=== PATIENT | female | born 1950 | race Caucasian/White ===

== ENCOUNTER 2019-05-30 11:58 | Inpatient (IN) | payer MEDICARE, OTHER ==
--- NOTE | 2019-05-24 16:09 | HPE ---
DATE OF ADMISSION: 05/30/2019 ATTENDING PHYSICIAN: Dr. Gary Courtney CHIEF COMPLAINT: Right knee pain and stiffness. HISTORY: The patient is a pleasant 69-year-old female with progressively worsening right knee pain and stiffness. She has failed to improve with conservative measures. She continues to have symptoms with weightbearing activities and activities of daily living. She has consented for an elective right total knee arthroplasty with Dr. Courtney for her continued symptoms. Medical optimization pending with Dr. Valadez. CURRENT MEDICATIONS: - aspirin 81 mg daily - Zoloft 50 mg daily - labetalol 100 mg two every morning and one every evening - Aricept 10 mg twice daily - gabapentin 300 mg twice daily - Janumet 500 mg twice daily - fish oil 100 mg daily CHRONIC MEDICAL CONDITIONS: 1. Dementia. 2. Diabetes. 3. Hypertension. 4. Depression. ALLERGIES: There are no known drug allergies. PAST SURGICAL HISTORY: Include: 1. Cholecystectomy. 2. Partial hysterectomy. 3. Liposuction. 4. Hip surgery status post fracture. 5. Bilateral cataract surgery. SOCIAL HISTORY: The patient does not use tobacco and rarely uses alcohol. REVIEW OF SYSTEMS: The patient denies fevers, chills, nausea, vomiting or diarrhea. She denies chest pain, shortness of breath, lightheadedness, dizziness or headaches. She denies any recent upper respiratory or urinary tract infection symptoms. She continues to have right knee pain with weightbearing activities and activities of daily living. PHYSICAL EXAMINATION: GENERAL: Well-nourished, well-developed female in no apparent distress. She is alert, oriented and cooperative. Mood and affect are appropriate. VITAL SIGNS: Height 5 feet, 10 inches, weight 116.4 pounds, temperature 97.7, blood pressure 121/80, heart rate 76, respirations 15. NECK: Supple without lymphadenopathy. HEART: Regular rate and rhythm. LUNGS: Clear to auscultation bilaterally. ABDOMEN: Soft, nontender to palpation. Bowel sounds are present. MUSCULOSKELETAL: The patient is walking with the assistance of a cane today. She is favoring the right lower extremity. Inspection of the knee does reveal some hypertrophic bone growth medially with some tenderness to palpation along the medial joint line. She can extend knee fully but can only flex to 90 degrees. There is a valgus deformity present. Strength of the right lower extremity is 5/5. No hip irritability was elicited with range of motion testing. Calf is soft, nontender to palpation with no palpable cords noted. She is neurovascularly intact distally. LABORATORY DATA: EKG: Normal sinus rhythm with low-voltage QRS. Chest x-ray: No acute disease. Right knee x-ray notable for a day at the degenerative valgus changes. Comprehensive metabolic panel: Sodium 145, potassium 4, chloride 104, carbon dioxide 29, glucose elevated at 131, BUN 15, creatinine 0.7, BUN/creatinine 21, total protein 6.7, albumin 4.1, globulin 2.6, albumin-globulin ratio 1.6, calcium 9.6, total bilirubin 0.3, alkaline phosphatase 82, AST 13, ALT decreased at 6, anion gap 12. Type and screen: A+ with a negative antibody screen. Complete blood count (CBC): WBC 6.8, RBCs 4.45, hemoglobin 13, hematocrit 40.1, platelets 240. Prothrombin time 13.3, INR 0.98, erythrocyte sedimentation rate 13. IMPRESSION: Right knee degenerative valgus arthritis with x-rays notable for end-stage degenerative changes. PLAN: The patient has consented for an elective right total knee arthroplasty with Dr. Courtney for her continued symptoms. Medical optimization pending with Dr. Courtney. GUSTAVO
[2019-05-30] VITALS (7 sets, daily range): BP systolic 151–166; BP diastolic 61–70
[~2019-05-30] VITALS: Ht 147.3 cm; Wt 51.8 kg
[~2019-05-30 11:58] MED LIST: AMLO5TAB6; ARIC1TAB2 PO; ASPI81TA26 PO; ATOR1TAB21 PO; DONE10TA90; FISH1000 PO; GABA-843 PO; JANU50TA22 PO; LABE100T36 PO; LIDOCAINE 1% MDV 20ML VIAL SQ PRN; OMEP20CA4 PO; PANT40TA3 PO; SERT-155 PO; TRAM50TA2 PO; VENL75CA47 PO
[2019-05-30] MEDS ORDERED: LR 1,000 ML IV ONE (12:15)
--- NOTE | 2019-05-30 12:19 | IPN ---
DATE: 05/29/2019 The patient seen and examined. She is here with her family. They understand the nature of the procedure, the risks of bleeding, infection, damage to nerves, vessels, persistent pain, wear loosening, blood clots, medical problems, among others. They wished to proceed with a right total knee arthroplasty.
[2019-05-30] MEDS ORDERED: MIDAZOLAM INJ 2 MG/2 ML VIAL (J2250) As Ordered ONE (13:11)
[2019-05-30] MEDS ORDERED: fentaNYL 100 MCG/2 ML INJECTION (J3010) As Ordered ONE (13:11)
[2019-05-30] MEDS ORDERED: ceFAZolin 1GM INJ (J0690 PER 500MG) As Ordered ONE (13:14)
[2019-05-30] MEDS ORDERED: BUPIVACAINE LIPOSOME/PF 1.3% 20ML VIAL (13.3MG/ML)(EXPAREL)(C9290 PER1MG) As Ordered ONE (13:14)
[2019-05-30] MEDS ORDERED: TRANEXAMIC ACID 100 MG/ML 10ML VIAL As Ordered ONE (13:14)
[2019-05-30] MEDS ORDERED: EPINEPHrine INJ 1 MG/ML 1ML AMP As Ordered ONE (13:14)
[2019-05-30] MEDS ORDERED: MIDAZOLAM INJ 2 MG/2 ML VIAL (J2250) IV ONE (13:45)
[2019-05-30] MEDS ORDERED: fentaNYL 100 MCG/2 ML INJECTION (J3010) IV ONE (13:45)
[2019-05-30] MEDS ORDERED: LIDOCAINE 2% INJ 100 MG/5 ML SDV (FOR ANES.) As Ordered ONE (14:15)
[2019-05-30] MEDS ORDERED: PROPOFOL 200 MG/20 ML VIAL As Ordered ONE (14:15)
[2019-05-30] MEDS ORDERED: ROPIvacaine 0.5% 30 ML INJECTION (J2795 PER 1MG) ONE (14:29)
[2019-05-30] MEDS ORDERED: dexameTHASONE 10 MG/1 ML VIAL PRES.FREE (J1100) ONE (14:29)
[2019-05-30] MEDS ORDERED: hydrALAZINE INJ 20 MG/ML VIAL As Ordered ONE (14:31)
[2019-05-30] MEDS ORDERED: ONDANSETRON 4MG/2ML VIAL (J2405) As Ordered ONE (15:39)
[2019-05-30] MEDS ORDERED: ePHEDrine SULFATE 25 MG/5 ML(5MG/ML) SYRINGE As Ordered ONE (15:45)
[2019-05-30] MEDS ORDERED: ONDANSETRON 4MG/2ML VIAL (J2405) IV PRN ×2 (16:30)
[2019-05-30] MEDS ORDERED: ACETAMINOPHEN TAB 650MG DOSE (2X325MG) PO PRN (16:30)
[2019-05-30] MEDS ORDERED: MORPHINE 4 MG/ML 1ML VIAL/SYRINGE (J2270) IV PRN ×2 (16:30)
[2019-05-30] MEDS ORDERED: LR 1,000 ML IV SCH (16:30)
[2019-05-30] MEDS ORDERED: oxyCODONE 5MG TAB PO PRN (16:30)
[2019-05-30] MEDS ORDERED: fentaNYL 100 MCG/2 ML INJECTION (J3010) IV PRN (16:30)
[2019-05-30] MEDS ORDERED: FLEET ENEMA PR PRN (16:30)
--- NOTE | 2019-05-30 16:30 | RO ---
DATE OF PROCEDURE: 05/30/2019 PREOPERATIVE DIAGNOSIS: Right knee osteoarthritis. POSTOPERATIVE DIAGNOSIS: Right knee osteoarthritis. OPERATIVE PROCEDURE: Right total knee arthroplasty using an Attune rotating platform posterior stabilized size 4 femur and tibia, 10 polyethylene, 35 patellar button. SURGEON: Gary Courtney MD BARREL INSPECTOR TIGHT: ALYSSA Romo ANESTHESIA: Spinal ESTIMATED BLOOD LOSS: Less than 50 mL COMPLICATIONS: None. INDICATIONS: 69-year woman who has had gradually worsening knee pain and fairly severe valgus deformity of the knee who wished to go ahead with a knee replacement. She understood the nature of this, the risks of bleeding, infection, damage to nerves, vessels, persistent pain, wear, loosening, blood clots, medical problems, among others. She understood that she had a significant deformity ahead of time and we often cannot fully correct that due to ligamentous balance. DESCRIPTION OF PROCEDURE: The patient was taken to the operating room and placed in supine position after spinal anesthesia was induced. The right lower extremity was prepped and draped in the usual sterile fashion. Time-out was performed and a longitudinal incision was made over the anterior aspect of the knee. Sharp dissection was carried down through the subcutaneous tissue. A medial parapatellar arthrotomy was performed. I did do a lateral release at the beginning because her patella was subluxed off laterally as is common with valgus knees. We everted the patella, flexed the knee up, removed some osteophytes. She had fairly significant valgus at her femur. Canal initiating reamer followed by the intramedullary guide set at 7 degrees of valgus and a 9 mm cut was pinned in place and the distal femoral cut was made. I sized the femur to be a 4. The pin holes were placed at the end of the femur. The cutting block was secured. The remaining four cuts were made protecting soft tissues. I then prepared the tibia. Tibial alignment guide was placed in an appropriate amount of valgus and posterior slope and the proximal tibia cut was made taking about 2 mm off the low side, which was the lateral side. I used the sommelier to remove soft tissue and significant osteophytes from the posterior aspect of the knee. The box cutting guide was then secured and the remaining three cuts were made. This bone was removed. The PCL had been removed. I then prepared the tibial surface, sized to be a 4. The drill holes placed. The broach was then used and the trial components were placed. I had also used a spacer block prior to this and it felt like a size 10 was the most appropriate initially, but was between a size 10 and an 8. Once we put the trial components in, the size 8 polyethylene was more appropriate. It had excellent extension and stability, excellent flexion and stability and alignment. She was in the appropriate amount of valgus. Medial collateral ligament was intact. The patella was then freehand cut removing about 7 or 8 mm of bone. Sized to be a 35. The drill holes were placed. The drill holes were placed at the end of the femur. The malt specifications control assistant prepared the bone cement as I removed the trial components, irrigated copiously. The patella had tracked quite nicely. The surfaces were dried. I cemented in the tibial tray and the femoral component, removed excess bone cement, placed the polyethylene, brought the knee out in extension. Cemented on the patellar component, held this in place with a clamp. Removed all excess bone cement, irrigated as I had multiple times prior to this and made sure that the bone was irrigated and dried prior to cementing. I placed the TXA solution and the Exparel in the deep tissues. Once the cement had hardened, final deep irrigation was performed and closed the deep layer with interrupted #1 Vicryl suture followed by running Stratafix suture, the subcu with #2-0 Vicryl, deflated the tourniquet once the cement had hardened. The skin was closed with christiano. Sterile dressing was applied. She was taken to recovery room in stable condition. There were no known complications. The plan will be routine postop. The malt specifications control assistant was instrumental in holding retractors and assisting in mixing the bone cement, assisting in wound closure.
--- NOTE | 2019-05-30 16:36 | REP ---
Clinical: Status post knee replacement. Technique AP and cross-table lateral views. Findings: The patient is status post right knee replacement with normal positioning and appearance to the femoral and tibial components. Overlying postsurgical changes appreciated. Impression: Status post right knee replacement. Electronically Signed by Tavo Gallardo MD 05/30/2019 04:27 P
[2019-05-30] MEDS: LR 1,000 ML IV SCH (18:27)
--- NOTE | 2019-05-30 18:54 | CR.PDOC ---
General Date of Consultation: May 30, 2019 Consultation REASON FOR CONSULTATION/CHIEF COMPLAINT: HISTORY: The patient is a 69-year-old female with progressively worsening right knee pain and stiffness, who failed to improve with conservative measures and is s/p elective right total knee arthroplasty with Dr. Courtney. Patient is very pleasant. Denied any pain, fever, chills, chest pain or sob. CURRENT HOME MEDICATIONS: - aspirin 81 mg daily - Zoloft 50 mg daily - labetalol 100 mg two every morning and one every evening - Aricept 10 mg twice daily - gabapentin 300 mg twice daily - Janumet 500 mg twice daily - fish oil 100 mg daily CHRONIC MEDICAL CONDITIONS: 1. Dementia. 2. Diabetes. 3. Hypertension. 4. Depression. ALLERGIES: There are no known drug allergies. PAST SURGICAL HISTORY: Include: 1. Cholecystectomy. 2. Partial hysterectomy. 3. Liposuction. 4. Hip surgery status post fracture. 5. Bilateral cataract surgery. SOCIAL HISTORY: The patient does not use tobacco and rarely uses alcohol. REVIEW OF SYSTEMS: All 14 point ros negative except for what's stated in HPI Physical exam Gen: NAD, healthy appearing , HEENT: normocephalic, atraumatic, PERRLA , EOMI, neck supple CVS: RRR, normal S1n S2, no murmur, rubs, or gallops, no edema, no jvd Resp: LCTAB, no rhonchi, wheezes or crackles Abd : soft nontender, normal bowel sounds, no rebound tenderness or guarding MSK: no swelling, strength 5/5- limited rom in right leg due to surgery , no tenderness , Neuro: AOAx3, no confusion Psych: normal mood and affect, good judgment labs and images done outpt prior to surgery IMPRESSION: Right total knee arthoplasty - prn pain meds -bowel regimen -antiemetic -PT eval -AC per ortho -abx per ortho DM2 hold po meds ISS monitor f/s tidac and qhs htn pain is controlled resume home meds monitor for hypotension while on narcotic and bp meds dementia -stable -pleasant and cooperative -c/w home meds dvt ppx full code Vital Signs/I&O Vital Signs Date Time Temp Pulse Resp B/P (MAP) Pulse Ox O2 Delivery O2 Flow Rate FiO2 05/30/19 17:27 98.1 61 16 151/70 (97) 95 7/31/19 15:58 2 Laboratory Data Labs 24H Laboratory Tests 2 05/30/19 16:07: Bedside Glucose (Misc Panel) 99 CBC/BMP Laboratory Tests 05/30/19 12:16 Allergies Coded Allergies: POLLEN (Verified Allergy, Unknown, 04/23/15) prednisone (Verified Allergy, Unknown, 05/16/19) naproxen (Verified Adverse Reaction, Mild, STOMACH UPSET, 05/16/19) Home Medications Scheduled Aspirin (Aspirin EC) 81 Mg Tablet.dr, 81 MG PO DAILY, #30 (Reported) Atorvastatin Calcium (Atorvastatin Calcium) 20 Mg Tablet, 20 MG PO DAILY, (Reported) Donepezil HCl (Aricept) 10 Mg Tablet, 10 MG PO BID, (Reported) Gabapentin (Gabapentin) 300 Mg Capsule, 300 MG PO BID, (Reported) Labetalol HCl (Labetalol HCl) 100 Mg Tablet, 100 MG PO BID, (Reported) [place]-3 Fatty Acids/Fish Oil (Fish Oil 1,000 mg Capsule) 1 Each Capsule, 1,000 MG PO DAILY, (Reported) Sertraline HCl (Sertraline HCl) 50 Mg Tablet, 50 MG PO DAILY, (Reported) Sitagliptin Phos/Metformin HCl (Janumet Xr 50-500 mg Tablet) 1 Each Tbmp.24hr, 1 TAB PO BID, (Reported) Scheduled PRN Omeprazole (Omeprazole) 20 Mg Capsule.dr, 20 MG PO DAILYPRN PRN for HEARTBURN, (Reported) Tramadol HCl (Tramadol HCl) 50 Mg Tablet, 50 MG PO BIDP PRN for PAIN, (Reported) SALENA SANCHEZ MD May 30, 2019 17:57
[2019-05-30] MEDS ORDERED: DEXTROSE 50% 50 ML SYRINGE IV PRN (19:15)
[2019-05-30] MEDS ORDERED: GLUCOSE 4 GM CHEW TABLET PO PRN (19:15)
[2019-05-30] MEDS ORDERED: GLUCAGON FOR INJ 1 MG VIAL (J1610) SC PRN (19:15)
[2019-05-30] MEDS ORDERED: OMEPRAZOLE 20 MG CAP PO PRN (19:15)
[2019-05-30] MEDS: ATORVASTATIN 20 MG TAB PO SCH (20:33)
[2019-05-30] MEDS: GABAPENTIN 300 MG CAP PO SCH (20:34)
[2019-05-30] MEDS: DONEPEZIL 5 MG TAB PO SCH (20:34)
[2019-05-30] MEDS: LABETALOL 100 MG TAB PO SCH (20:34)
[2019-05-30] MEDS: NORCO, ANEXSIA 5/325MG TABLET (HYDROcodone/ACETAMINOPHEN) PO PRN (20:35)
[2019-05-31 02:08] VITALS: BP 145/66
[2019-05-31] MEDS: LR 1,000 ML IV SCH (05:50)
[2019-05-31 06:00] VITALS: BP 139/60
[2019-05-31 06:22] LABS: HEMATOCRIT 31.3 % (36.0-47.0); HEMOGLOBIN 10.3 g/dl (12.0-15.5); MEAN CORPUSCULAR HGB CONC 32.9 g/dl (32.0-36.5); MEAN CORPUSCULAR VOLUME 91.3 fl (80.0-96.0); PLATELET COUNT, AUTOMATED 204 10^3/uL (150-450); RED BLOOD COUNT 3.43 10^6/uL (4.00-5.40); WHITE BLOOD COUNT 11.8 10^3/uL (4.0-10.0)
[2019-05-31 06:45] LABS: ALBUMIN 2.7 GM/DL (3.2-5.2); ALT/SGPT 10 U/L (12-78); BILIRUBIN,TOTAL 0.3 MG/DL (0.2-1.0); BLOOD UREA NITROGEN 19 MG/DL (7-18); CALCIUM LEVEL 8.4 MG/DL (8.8-10.2); CARBON DIOXIDE LEVEL 29 MEQ/L (21-32); CHLORIDE LEVEL 104 MEQ/L (98-107); CREATININE FOR GFR 0.85 MG/DL (0.55-1.30); GLOMERULAR FILTRATION RATE > 60.0 (>39); GLUCOSE, FASTING 176 MG/DL (70-100); POTASSIUM SERUM 4.1 MEQ/L (3.5-5.1); SODIUM LEVEL 139 MEQ/L (136-145); TOTAL PROTEIN 5.7 GM/DL (6.4-8.2)
[2019-05-31] MEDS ORDERED: HYDR-3713 PO (07:02)
[2019-05-31] MEDS ORDERED: XARE10TA PO (07:02)
[2019-05-31] MEDS: MOM 30ML SUSPENSION UDC PO SCH (08:42)
[2019-05-31] MEDS: MIRALAX *UNIT DOSE* 17GM PACKET PO SCH (08:42)
[2019-05-31] MEDS: GABAPENTIN 300 MG CAP PO SCH ×2 (08:42→21:00)
[2019-05-31] MEDS: HumaLOG INSULIN (NovoLOG) PER UNIT SC SCH ×3 (08:45→18:30)
[2019-05-31] MEDS: LABETALOL 100 MG TAB PO SCH ×2 (08:46→21:00)
[2019-05-31] MEDS: SERTRALINE HCL 50 MG TAB PO SCH (08:47)
[2019-05-31] MEDS: DONEPEZIL 5 MG TAB PO SCH ×2 (08:47→21:00)
[2019-05-31] MEDS: NORCO, ANEXSIA 5/325MG TABLET (HYDROcodone/ACETAMINOPHEN) PO PRN ×3 (08:48→18:33)
[2019-05-31 14:00] VITALS: BP 124/48
[2019-05-31] MEDS: RIVAROXABAN 10 MG TAB (XARELTO) PO SCH (18:29)
[2019-05-31] MEDS: ATORVASTATIN 20 MG TAB PO SCH (21:00)
[2019-05-31 22:00] VITALS: BP 160/62
--- NOTE | 2019-05-31 22:44 | IPNPDOC ---
Date Seen The patient was seen on 05/31/19. Progress Note The patient is a 69-year-old female s/p elective right total knee arthroplasty on 05/30/19. Patient is very pleasant. Denied any pain, fever, chills, chest pain or sob. Objective vitals and labs below- Physical exam Gen: NAD, healthy appearing , HEENT: normocephalic, atraumatic, PERRLA , EOMI, neck supple CVS: RRR, normal S1n S2, no murmur, rubs, or gallops, no edema, no jvd Resp: LCTAB, no rhonchi, wheezes or crackles Abd : soft nontender, normal bowel sounds, no rebound tenderness or guarding MSK: no swelling, strength 5/5- limited rom in right leg due to surgery , no tenderness , Neuro: AOAx3, no confusion Psych: normal mood and affect, good judgment IMPRESSION: Right total knee arthoplasty - prn pain meds -bowel regimen -antiemetic -PT eval -AC per ortho -abx per ortho DM2 hold po meds ISS monitor f/s tidac and qhs htn resume home meds monitor for hypotension while on narcotic and bp meds dementia -stable -pleasant and cooperative -c/w home meds dvt ppx full code VS, I&O, 24H, Fishbone Vital Signs/I&O Vital Signs Date Time Temp Pulse Resp B/P (MAP) Pulse Ox O2 Delivery O2 Flow Rate FiO2 05/31/19 21:00 65 160/62 05/31/19 19:03 16 05/31/19 14:00 97.9 99 05/30/19 15:58 2 I&O- Last 24 Hours up to 6 AM 05/31/19 05:59 Intake Total 1823 ml Output Total 1150 ml Balance 673 ml Laboratory Data 24H LABS Laboratory Tests 2 05/31/19 06:03: Nucleated Red Blood Cells % (auto) 0.0, Anion Gap 6L, Glomerular Filtration Rate > 60.0, Blood Urea Nitrogen 19H, Creatinine 0.85, Sodium Level 139, Potassium Level 4.1, Chloride Level 104, Carbon Dioxide Level 29, Calcium Level 8.4L, Aspartate Amino Transf (AST/SGOT) 10, Alanine Aminotransferase (ALT/SGPT) 10L, Alkaline Phosphatase 64, Total Bilirubin 0.3, Total Protein 5.7L, Albumin 2.7L, Magnesium Level 2.0, Albumin/Globulin Ratio 0.90L 05/31/19 11:35: Bedside Glucose (Misc Panel) 117H 05/31/19 16:42: Bedside Glucose (Misc Panel) 143H 05/31/19 19:54: Bedside Glucose (Misc Panel) 119H CBC/BMP Laboratory Tests 05/31/19 06:03 Red Blood Count 3.43 L, Mean Corpuscular Volume 91.3, Mean Corpuscular Hemoglobin 30.0, Mean Corpuscular Hemoglobin Concent 32.9, Red Cell Distribution Width 13.1, Calcium Level 8.4 L, Aspartate Amino Transf (AST/SGOT) 10, Alanine Aminotransferase (ALT/SGPT) 10 L, Alkaline Phosphatase 64, Total Bilirubin 0.3, Total Protein 5.7 L, Albumin 2.7 L SALENA SANCHEZ MD May 31, 2019 22:44
[2019-06-01 06:00] VITALS: BP 154/59
[2019-06-01] MEDS ORDERED: XARE10TA PO (06:06)
[2019-06-01 06:23] LABS: HEMATOCRIT 29.4 % (36.0-47.0); HEMOGLOBIN 9.8 g/dl (12.0-15.5); MEAN CORPUSCULAR HGB CONC 33.3 g/dl (32.0-36.5); PLATELET COUNT, AUTOMATED 196 10^3/uL (150-450); RED BLOOD COUNT 3.38 10^6/uL (4.00-5.40)
[2019-06-01 06:29] VITALS: BP 160/60
[2019-06-01] MEDS: HumaLOG INSULIN (NovoLOG) PER UNIT SC SCH ×3 (08:18→17:30)
[2019-06-01] MEDS: NORCO, ANEXSIA 5/325MG TABLET (HYDROcodone/ACETAMINOPHEN) PO PRN ×3 (08:19→23:33)
[2019-06-01] MEDS: MOM 30ML SUSPENSION UDC PO SCH (08:20)
[2019-06-01] MEDS: GABAPENTIN 300 MG CAP PO SCH ×2 (08:20→20:44)
[2019-06-01] MEDS: MIRALAX *UNIT DOSE* 17GM PACKET PO SCH (08:20)
[2019-06-01] MEDS: DONEPEZIL 5 MG TAB PO SCH ×2 (08:20→20:44)
[2019-06-01] MEDS: SERTRALINE HCL 50 MG TAB PO SCH (08:20)
[2019-06-01] MEDS: LABETALOL 100 MG TAB PO SCH ×2 (08:22→20:47)
[2019-06-01 13:38] VITALS: BP 118/44
[2019-06-01 14:00] VITALS: BP 118/74
[2019-06-01] MEDS: RIVAROXABAN 10 MG TAB (XARELTO) PO SCH (18:20)
[2019-06-01] MEDS: ATORVASTATIN 20 MG TAB PO SCH (20:44)
[2019-06-01 20:46] VITALS: BP 159/52
[2019-06-02 06:25] VITALS: BP 146/53
--- NOTE | 2019-06-02 08:55 | IPN ---
DATE: 06/02/2019 CHIEF COMPLAINT: Postoperative day 3 from a right total knee arthroplasty by Dr. Courtney. HISTORY OF PRESENT ILLNESS: This is a 77-year-old female who had valgus deformity the knee with arthritis. She underwent a total knee arthroplasty by Dr. Courtney three days ago. She is doing well in the hospital. She has had a left total hip arthroplasty. She has no concerns or complaints and neither do her nurses. PHYSICAL EXAMS: Well-appearing 69-year-old female. She is alert and oriented times three. She is easy to get along with. Mood and affect pleasant and positive. Dressing has slight strike-through on the distal aspect, but otherwise clean and dry. Knee is moderately swollen. We moved her to reposition the knee in full extension. She has a good dorsalis pedis pulse. Her foot is warm and well perfused. She is able wiggle her toes, dorsiflex, plantar flex foot. Laboratory examination revealed hemoglobin slightly low of 9.8 yesterday. No repeat hemoglobin yet this morning. ASSESSMENT/PLAN: This 69-year-old female hopefully will clear physical therapy today and be discharged home. She is on rivaroxaban for VTE prophylaxis. She had no further questions.
[2019-06-02] MEDS: MIRALAX *UNIT DOSE* 17GM PACKET PO SCH (09:00)
[2019-06-02] MEDS: MOM 30ML SUSPENSION UDC PO SCH (09:00)
[2019-06-02] MEDS: DONEPEZIL 5 MG TAB PO SCH (09:09)
[2019-06-02] MEDS: SERTRALINE HCL 50 MG TAB PO SCH (09:09)
[2019-06-02 09:10] VITALS: BP 146/53
[2019-06-02] MEDS: LABETALOL 100 MG TAB PO SCH (09:10)
[2019-06-02] MEDS: HumaLOG INSULIN (NovoLOG) PER UNIT SC SCH ×2 (09:10→12:50)
[2019-06-02] MEDS: GABAPENTIN 300 MG CAP PO SCH (09:10)
[2019-06-02] MEDS: NORCO, ANEXSIA 5/325MG TABLET (HYDROcodone/ACETAMINOPHEN) PO PRN (09:17)
--- NOTE | 2019-06-02 23:54 | DS.PDOC ---
Discharge Summary General Date of Admission May 30, 2019 at 11:58 Date of Discharge 06/01/19 Discharge Summary PROCEDURES PERFORMED DURING STAY: [None]. ADMITTING DIAGNOSES: 1. [elective right total knee arthroplasty]. DISCHARGE DIAGNOSES: 1. [elective right total knee arthroplasty]. COMPLICATIONS/CHIEF COMPLAINT: Arthritis Right Knee. HISTORY OF PRESENT ILLNESS: [ The patient is a 69-year-old female with progressively worsening right knee pain and stiffness, who failed to improve with conservative measures and is s/p elective right total knee arthroplasty with Dr. Courtney. Patient is very pleasant. Denied any pain, fever, chills, chest pain or sob. ]. HOSPITAL COURSE: The patient is a 69-year-old female s/p elective right total knee arthroplasty on 05/30/19. She has been on anticoagulation and antibiotics per ortho, as well and prn pain medications. Surgery was successful and patient has been doing great with only complaint of right leg pain with movement. For her diabetes, her oral home medication was held and she was given insulin sliding scale. Her hypertensive home medications were continued during the stay. Patient is being discharged on medications below. Physical exam Gen: NAD, healthy appearing , HEENT: normocephalic, atraumatic, PERRLA , EOMI, neck supple CVS: RRR, normal S1n S2, no murmur, rubs, or gallops, no edema, no jvd Resp: LCTAB, no rhonchi, wheezes or crackles Abd : soft nontender, normal bowel sounds, no rebound tenderness or guarding MSK: no swelling, strength 5/5- limited rom in right leg due to surgery , no tenderness , Neuro: AOAx3, no confusion Psych: normal mood and affect, good judgment DISCHARGE MEDICATIONS: Please see below. ALLERGIES: Please see below. LABORATORY DATA: Please see below. IMAGING: [see below] PROGNOSIS: [good] ACTIVITY: [As tolerated]. DIET: [as tolerated] DISCHARGE PLAN: [c/w meds below, and follow up with pmd and Dr. Hinojosa per appointment ] DISPOSITION: home with home care DISCHARGE CONDITION: [Stable]. TIME SPENT ON DISCHARGE: Greater than [10] minutes. Vital Signs/I&Os Vital Signs Date Time Temp Pulse Resp B/P (MAP) Pulse Ox O2 Delivery O2 Flow Rate FiO2 06/01/19 06:00 98.5 73 18 154/59 (90) 98 05/30/19 15:58 2 I&O- Last 24 Hours up to 6 AM 06/01/19 05:59 Intake Total 580 ml Output Total 0 ml Balance 580 ml Laboratory Data Labs 24H Laboratory Tests 2 05/31/19 11:35: Bedside Glucose (Misc Panel) 117H 05/31/19 16:42: Bedside Glucose (Misc Panel) 143H 05/31/19 19:54: Bedside Glucose (Misc Panel) 119H 06/01/19 06:08: Nucleated Red Blood Cells % (auto) 0.0 06/01/19 06:33: Bedside Glucose (Misc Panel) 122H CBC/BMP Laboratory Tests 06/01/19 06:08 Red Blood Count 3.38 L, Mean Corpuscular Volume 87.0, Mean Corpuscular Hemoglobin 29.0, Mean Corpuscular Hemoglobin Concent 33.3, Red Cell Distribution Width 13.3 FSBS Laboratory Tests Test 05/31/19 11:35 05/31/19 16:42 05/31/19 19:54 06/01/19 06:33 Range/Units Bedside Glucose (Misc Panel) 117 143 119 122 83-110 MG/DL Discharge Medications Scheduled Atorvastatin Calcium (Atorvastatin Calcium) 20 Mg Tablet, 20 MG PO DAILY, (Reported) Donepezil HCl (Aricept) 10 Mg Tablet, 10 MG PO BID, (Reported) Gabapentin (Gabapentin) 300 Mg Capsule, 300 MG PO BID, (Reported) Labetalol HCl (Labetalol HCl) 100 Mg Tablet, 100 MG PO BID, (Reported) [place]-3 Fatty Acids/Fish Oil (Fish Oil 1,000 mg Capsule) 1 Each Capsule, 1,000 MG PO DAILY, (Reported) Rivaroxaban (Xarelto) 10 Mg Tablet, 10 MG PO DAILY Sertraline HCl (Sertraline HCl) 50 Mg Tablet, 50 MG PO DAILY, (Reported) Sitagliptin Phos/Metformin HCl (Janumet Xr 50-500 mg Tablet) 1 Each Tbmp.24hr, 1 TAB PO BID, (Reported) Scheduled PRN Hydrocodone/Acetaminophen (Hydrocodone-Acetamin 5-325 mg) 1 Each Tablet, 1-2 TAB PO Q4H PRN for PAIN Omeprazole (Omeprazole) 20 Mg Capsule.dr, 20 MG PO DAILYPRN PRN for HEARTBURN, (Reported) Tramadol HCl (Tramadol HCl) 50 Mg Tablet, 50 MG PO BIDP PRN for PAIN, (Reported) Allergies Coded Allergies: POLLEN (Verified Allergy, Unknown, 04/23/15) prednisone (Verified Allergy, Unknown, 05/16/19) naproxen (Verified Adverse Reaction, Mild, STOMACH UPSET, 05/16/19) SALENA SANCHEZ MD Jun 01, 2019 07:51
== END 2019-06-02 13:20 | disposition home health service (06) | DRG 470 ==
LOC: M OR 11:58 → EDSTATUS 14:45 → M MS5PR 16:50
PROVIDERS: ADMIT Orthopaedic Surgery; ATTEND Orthopaedic Surgery
PROC: 0SRC0J9 Replacement of Right Knee Joint with Synthetic Substitute, Cemented, Open Approach (ICD-10-PCS; principal; 2019-05-30 13:45)
DX: M17.11 Unilateral primary osteoarthritis, right knee (principal); F03.90 Unspecified dementia, unspecified severity, without behavioral disturbance, psychotic disturbance, mood disturbance, and anxiety; E11.9 Type 2 diabetes mellitus without complications; R26.89 Other abnormalities of gait and mobility; I10 Essential (primary) hypertension; F32.9 Major depressive disorder, single episode, unspecified; Z90.49 Acquired absence of other specified parts of digestive tract; Z98.41 Cataract extraction status, right eye; Z98.42 Cataract extraction status, left eye; Z79.82 Long term (current) use of aspirin; Z79.899 Other long term (current) drug therapy; Z79.84 Long term (current) use of oral hypoglycemic drugs